=== PATIENT | female | born 1975 | race Caucasian/White ===

== ENCOUNTER 2017-07-12 20:03 | Emergency (ER) | payer MEDICAID, OTHER ==
[2017-07-12] MEDS: IBUPROFEN 600 MG TAB PO (21:25)
== END 2017-07-12 23:43 | disposition home or self-care (01) ==
LOC: FTE 20:03
DX: S19.9XXA Unspecified injury of neck, initial encounter (principal); S29.9XXA Unspecified injury of thorax, initial encounter; V89.2XXA Person injured in unspecified motor-vehicle accident, traffic, initial encounter
CPT/HCPCS: 72040; 72100; 81025; 99283-25

== ENCOUNTER 2018-02-09 21:45 | Emergency (ER) | payer MEDICAID ==
[2018-02-09] MEDS: IBUPROFEN 800 MG TAB PO (22:18)
[2018-02-09] MEDS: METHYLPREDNISOLONE 125 MG INJ IM (22:18)
[2018-02-09] MEDS: ACETAMINOPHEN 500 MG TAB PO (22:18)
[2018-02-09] MEDS: CEFTRIAXONE 1 GM INJ IM (22:18)
[2018-02-09] MEDS: ONDANSETRON (ODT) 4 MG TAB ODT (22:25)
[2018-02-09] MEDS ORDERED: ONDANSETRON 4 MG TAB PO (22:30)
== END 2018-02-09 22:45 | disposition home or self-care (01) ==
LOC: FTE 21:45
DX: J32.9 Chronic sinusitis, unspecified (principal); J03.90 Acute tonsillitis, unspecified; J02.9 Acute pharyngitis, unspecified; H66.93 Otitis media, unspecified, bilateral
CPT/HCPCS: 96372; 99284-25